=== PATIENT | female | born 1980 | race Caucasian/White ===

== ENCOUNTER 2018-04-09 15:38 | Emergency (ER) | payer OTHER ==
[~2018-04-09] VITALS: Ht 170.2 cm; Wt 61.2 kg
[2018-04-09] MEDS ORDERED: ZYRTEC10 M2 PO (17:11)
[2018-04-09] MEDS ORDERED: VENTOLIN HFA 1818 GM INH (17:11)
[2018-04-09 17:42] VITALS: BP 95/57
== END 2018-04-09 17:43 | disposition home or self-care (01) ==
LOC: ER 15:38
DX: J30.9 Allergic rhinitis, unspecified (principal); J45.901 Unspecified asthma with (acute) exacerbation; F17.210 Nicotine dependence, cigarettes, uncomplicated